=== PATIENT | male | born 1940 | race Caucasian/White ===

== ENCOUNTER 2017-06-02 06:01 | Inpatient (IN) | payer OTHER, BC ==
[~2017-06-02] VITALS: Ht 175.3 cm; Wt 93.8 kg
[2017-06-02] MEDS ORDERED: NORCO 5-325 TA1 EACH PO (06:10)
[2017-06-02] MEDS ORDERED: XALATAN2.5 ML OPHTHALMIC (06:11)
[2017-06-02] MEDS ORDERED: ZYRTEC10 M5 PO (06:12)
[2017-06-02] MEDS ORDERED: FLOMAX0.4 MG PO (06:12)
[2017-06-02] MEDS ORDERED: PROSCAR 5MG TABL5 MG PO (06:12)
[2017-06-02] MEDS ORDERED: TRUSOPT OCUMETE10 ML OPHTHALMIC (06:13)
[2017-06-02] MEDS ORDERED: FLEXERIL (06:13)
[2017-06-02] MEDS ORDERED: PREDNISONE 10 M10 MG PO (06:14)
[2017-06-02] MEDS ORDERED: ASPIR 8181 MG PO (06:15)
[2017-06-02] MEDS ORDERED: ADVAIR HFA 230M12 GM INH (06:15)
[2017-06-02] MEDS ORDERED: CIPRO500 MG PO (06:16)
[2017-06-02] MEDS ORDERED: PROTONIX 20 MG20 M1 PO (06:16)
[2017-06-02] MEDS ORDERED: PROMETHAZINE/C118 ML (06:17)
[2017-06-02] MEDS ORDERED: ELIQUIS5 MG PO (06:17)
[2017-06-02 07:21] VITALS: BP 154/74
[2017-06-02 10:36] LABS: URINE BILIRUBIN NEGATIVE (Negative); URINE BLOOD 3+ (Negative); URINE CLARITY CLOUDY; URINE COLOR RED; URINE GLUCOSE-RANDOM* NEGATIVE (Negative); URINE KETONES NEGATIVE (Negative); URINE LEUKOCYTES-REFLEX NEGATIVE (Negative); URINE NITRITE-REFLEX NEGATIVE (Negative); URINE PROTEIN (DIPSTICK) 2+ (Negative); URINE SPECIFIC GRAVITY 1.015 (1.005-1.035); URINE UROBILINOGEN 0.2 E.U./dl (0.2-1.0)
[2017-06-02 10:51] LABS: ABSOLUTE NEUTROPHILS 12.5 thou/uL (1.4-8.2); BASOPHILS 0.6 % (0.0-2.0); EOSINOPHILS 0.2 % (0.0-3.0); HEMATOCRIT 45.5 % (42.0-52.0); LYMPHOCYTES 11.9 % (24.0-44.0); MCH 29.6 pg (26.0-34.0); MCHC 33.1 g/dL (28.0-37.0); MCV 89.3 fL (80.0-100.0); MONOCYTES 6.4 % (1.0-8.0); PLATELET COUNT 158 thou/uL (150-400); POLYS 80.9 % (36.0-66.0); RBC 5.09 mil/uL (4.50-6.00); RDW 16.6 % (10.5-14.5); WBC 15.4 thou/uL (4.0-11.0)
[2017-06-02 11:17] LABS: CALCIUM 9.3 mg/dL (8.5-10.1); CREATININE 1.7 mg/dL (0.7-1.3); MAGNESIUM 1.8 mg/dL (1.8-2.4); POTASSIUM 3.9 mmol/L (3.5-5.1)
[2017-06-02 11:31] LABS: BACTERIA-REFLEX None Seen /HPF (None Seen); CASTS None Seen /LPF (None Seen); CRYSTALS None Seen /LPF (None Seen); SQUAMOUS 0-3 Few /LPF (0-3); URINE RBC >20 Many /HPF (0-2); URINE WBC-REFLEX 0-5 Rare /HPF (0-5)
[2017-06-02 20:12] VITALS: BP 151/85
[2017-06-02 23:56] VITALS: BP 123/53
[2017-06-03 04:18] VITALS: BP 150/83
== END 2017-06-03 07:07 | disposition home or self-care (01) | DRG 696 ==
LOC: 2N 06:01 → EROBS 06:01 → 2N 14:28
PROVIDERS: Nurse Practitioner
DX: R31.9 Hematuria, unspecified (principal); N40.0 Benign prostatic hyperplasia without lower urinary tract symptoms; F17.200 Nicotine dependence, unspecified, uncomplicated; R33.9 Retention of urine, unspecified; J44.9 Chronic obstructive pulmonary disease, unspecified; Z90.5 Acquired absence of kidney; Z85.53 Personal history of malignant neoplasm of renal pelvis; Z79.899 Other long term (current) drug therapy; Z98.49 Cataract extraction status, unspecified eye
CPT/HCPCS: 10797

== ENCOUNTER 2017-06-03 15:40 | Inpatient (IN) | payer OTHER, BC ==
[~2017-06-03] VITALS: Ht 175.3 cm; Wt 95.6 kg
[~2017-06-03 15:40] MED LIST: ADVAIR HFA 230M12 GM INH; ASPIR 8181 MG PO; CIPRO500 MG PO; ELIQUIS5 MG PO; FLEXERIL; FLOMAX0.4 MG PO; NORCO 5-325 TA1 EACH PO; PREDNISONE 10 M10 MG PO; PROMETHAZINE/C118 ML; PROSCAR 5MG TABL5 MG PO; PROTONIX 20 MG20 M1 PO; TRUSOPT OCUMETE10 ML OPHTHALMIC; XALATAN2.5 ML OPHTHALMIC; ZYRTEC10 M5 PO
[2017-06-03 18:15] VITALS: BP 143/75
[2017-06-03 20:22] VITALS: BP 143/92
[2017-06-04 00:11] VITALS: BP 115/75
[2017-06-04 04:17] VITALS: BP 124/70
[2017-06-04 10:46] LABS: HEMATOCRIT 40.1 % (42.0-52.0); HEMOGLOBIN 13.2 gm/dL (14.0-18.0); MCH 29.6 pg (26.0-34.0); MCHC 33.1 g/dL (28.0-37.0); MCV 89.6 fL (80.0-100.0); RBC 4.47 mil/uL (4.50-6.00); RDW 16.3 % (10.5-14.5); WBC 13.4 thou/uL (4.0-11.0)
[2017-06-04 10:51] LABS: CALCIUM 8.7 mg/dL (8.5-10.1); CREATININE 1.7 mg/dL (0.7-1.3); MAGNESIUM 2.1 mg/dL (1.8-2.4)
[2017-06-04 17:38] VITALS: BP 118/70
[2017-06-04 20:05] VITALS: BP 128/64
[2017-06-05 05:10] LABS: HEMATOCRIT 41.6 % (42.0-52.0); HEMOGLOBIN 13.5 gm/dL (14.0-18.0); MCH 29.7 pg (26.0-34.0); MCHC 32.5 g/dL (28.0-37.0); MCV 91.6 fL (80.0-100.0); RBC 4.54 mil/uL (4.50-6.00); RDW 16.4 % (10.5-14.5); WBC 12.3 thou/uL (4.0-11.0)
[2017-06-05 05:13] VITALS: BP 120/69
[2017-06-05 05:30] LABS: CALCIUM 8.7 mg/dL (8.5-10.1); CREATININE 1.8 mg/dL (0.7-1.3); MAGNESIUM 2.2 mg/dL (1.8-2.4); POTASSIUM 4.2 mmol/L (3.5-5.1)
[2017-06-05 08:00] VITALS: BP 145/66
[2017-06-05 12:00] VITALS: BP 140/85
[2017-06-05 16:00] VITALS: BP 114/61
[2017-06-05 19:46] VITALS: BP 113/53
[2017-06-06 03:19] LABS: HEMATOCRIT 38.1 % (42.0-52.0); HEMOGLOBIN 12.5 gm/dL (14.0-18.0); MCH 29.9 pg (26.0-34.0); MCHC 32.9 g/dL (28.0-37.0); MCV 90.9 fL (80.0-100.0); RBC 4.19 mil/uL (4.50-6.00); RDW 16.6 % (10.5-14.5)
[2017-06-06 03:33] LABS: CALCIUM 8.4 mg/dL (8.5-10.1); CREATININE 1.6 mg/dL (0.7-1.3); POTASSIUM 3.9 mmol/L (3.5-5.1)
[2017-06-06 03:46] VITALS: BP 151/55
[2017-06-06 08:11] VITALS: BP 123/69
[2017-06-06 12:37] VITALS: BP 127/72
[2017-06-06 15:56] VITALS: BP 110/66
[2017-06-06 21:02] VITALS: BP 115/59
[2017-06-07 04:11] LABS: HEMATOCRIT 36.4 % (42.0-52.0); HEMOGLOBIN 12.2 gm/dL (14.0-18.0); MCH 30.1 pg (26.0-34.0); MCHC 33.6 g/dL (28.0-37.0); MCV 89.7 fL (80.0-100.0); RBC 4.06 mil/uL (4.50-6.00); RDW 16.3 % (10.5-14.5); WBC 9.6 thou/uL (4.0-11.0)
[2017-06-07 04:23] LABS: CALCIUM 8.4 mg/dL (8.5-10.1); CREATININE 1.6 mg/dL (0.7-1.3); MAGNESIUM 1.9 mg/dL (1.8-2.4)
[2017-06-07 04:39] VITALS: BP 101/64
[2017-06-07 09:01] VITALS: BP 114/71
[2017-06-07 13:58] VITALS: BP 114/71
[2017-06-07 14:39] VITALS: BP 114/71
[2017-06-07 15:22] VITALS: BP 112/70
[2017-06-07 16:23] VITALS: BP 114/71
== END 2017-06-07 17:31 | disposition home or self-care (01) | DRG 696 ==
LOC: 2N 15:40 → ENTRNSPT 06-07 17:04 → 2N 06-07 17:31
PROVIDERS: Internal Medicine
DX: R31.0 Gross hematuria (principal); N40.0 Benign prostatic hyperplasia without lower urinary tract symptoms; F17.210 Nicotine dependence, cigarettes, uncomplicated; J44.9 Chronic obstructive pulmonary disease, unspecified; Z87.440 Personal history of urinary (tract) infections; Z88.2 Allergy status to sulfonamides; Z79.899 Other long term (current) drug therapy; Z85.528 Personal history of other malignant neoplasm of kidney; Z90.5 Acquired absence of kidney; Z82.49 Family history of ischemic heart disease and other diseases of the circulatory system; Z83.3 Family history of diabetes mellitus; Z80.9 Family history of malignant neoplasm, unspecified
CPT/HCPCS: 10081